=== PATIENT | female | born 1995 | race Caucasian/White ===

== ENCOUNTER 2020-05-18 09:00 | Outpatient (RCR) | payer OTHER, SELFPAY ==
--- NOTE | 2020-05-04 11:31 | MHC.PT.EP ---
[facility] [place] [facility] [place] [facility] [place] [facility] [address] Aletha Ramos [address] [phone] F: [phone] F: [phone] F: [phone] F: [phone] Physical Therapy Plan of Care Date of Evaluation: 05/04/20 Date of Surgery: Diagnosis: right knee pain Assessment: Pt has decreased hip ER ROM and some loss of ER strength. In addition, she has poor sitting and standing posture. She has increased lumbar lordosis and she admittedly sits cross legged right over left constantly which may contribute to knee pain. Pt will benefit from a pelvic, hip core stabilization program and activity modification as needed. Frequency and Duration: The patient will be seen 2x/week x 4 weeks Short Term Goals: -Pt to able to demonstrate proper sitting posture with the use of a lumbar roll to decrease aggravating factors. - Pt to be able to demonstrate proper posture for common leisure activities such as crocheting and phone/tablet use. 2 weeks - For the patient to demonstrate proper upright sitting posture with use of the lumbar roll to improve compliance and carryover. Wellness Coach Goals: 4 weeks - the patient will have no limiting pain in her knees during gait with community ambulation to show improved activity tolerance. 4 weeks - pt will have more quad control with TKE demonstrated by no medial collapse during a curb height step. 4 weeks -patient to be able to return to all functional movements and ADL's without limiting knee pain to show return to PLOF. Treatment Plan: Modalities to reduce pain, spasms and effusion. Manual therapy to restore motion and function. Therapeutic exercise to improve strength and flexibility. Neuromuscular re-education for posture and balance. Therapeutic activities to return to functional activities of daily living. Electronically signed by: Kyleigh Sharma PT DPT Please sign and return to therapist. Thank you for your referral.
--- NOTE | 2020-07-21 08:37 | MHC.PT.DC ---
[facility] [place] Office [place] Office [address] Aletha Ramos [address] [phone] F: [phone] F: [phone] F: [phone] F: [phone] Physical Therapy Discharge Report Diagnosis: right knee pain Date of Surgery: Date of Evaluation: 05/04/20 Date of Discharge: 06/04/20 Treatments to Date: 3 Cancellations to Date: 0 No Shows to Date: 0 Discharge Status: Patient Elected to Stop Discharge Summary: No pain reported today or during the exercise performance. The patient was reminded of importance of compliance to HEP. I discussed neutral spine sitting and other posture concerns for work and home. The patient stopped attending PT. This was not a scheduled D/c. She felt like she could manage her symptoms at home. Electronically signed by: Kyleigh Sharma PT DPT Please sign and return to therapist. Thank you for your referral.
== END 2020-07-21 15:18 | disposition other institution (70) ==
LOC: HO.PT 09:00
PROVIDERS: PCP Internal Medicine; Visit Provider Internal Medicine
DX: M25.561 Pain in right knee (principal)
CPT/HCPCS: 97110; 97112; 97161

== ENCOUNTER 2020-06-07 14:56 | Outpatient (REF) | payer OTHER, SELFPAY ==
[2020-06-07 15:13] LABS: COVID-19 Test Negative (Negative)
== END 2020-06-07 14:57 | disposition home or self-care (01) ==
LOC: HO.EMPCOV 14:56
PROVIDERS: Visit Provider Internal Medicine
DX: Z20.822 Contact with and (suspected) exposure to COVID-19 (principal)
CPT/HCPCS: 36415; 87635; C9803

== ENCOUNTER 2020-06-28 09:15 | Outpatient (REF) | payer OTHER, SELFPAY ==
[2020-06-30 04:36] LABS: C. trachomatis RNA TMA NOT DETECTED (NOT DETECTED); N. gonorrhoeae RNA TMA NOT DETECTED (NOT DETECTED)
[2020-07-04 13:31] LABS: HPV mRNA E6/E7 rflx Not Detected (Not Detected)
== END 2020-06-28 09:16 | disposition home or self-care (01) ==
LOC: HO.LAB 09:15
PROVIDERS: PCP Internal Medicine; Visit Provider Advanced Practice Midwife
DX: Z01.419 Encounter for gynecological examination (general) (routine) without abnormal findings (principal); Z11.3 Encounter for screening for infections with a predominantly sexual mode of transmission; Z87.891 Personal history of nicotine dependence
CPT/HCPCS: 36415; 87491; 87591; 87624; 88142

== ENCOUNTER 2021-11-23 10:41 | Outpatient (REF) | payer OTHER, SELFPAY ==
[2021-11-23 12:18] LABS: Hematocrit 41.4 % (37.0-47.0); Hemoglobin 14.2 g/dl (12.0-16.0); Mean Corpuscular HGB Conc 34.3 g/dl (31.0-35.0); Mean Corpuscular Hemoglobin 31.2 pg (27.0-33.0); Mean Platelet Volume 10.8 fL (9.4-12.3); Platelet Count 303 X10*3/uL (160-400); Red Blood Count 4.55 X10*6/uL (4.20-5.50); Red Cell Distribution Width 12.1 % (11.0-16.0); White Blood Count 5.9 X10*3/uL (4.8-10.8)
[2021-11-23 12:41] LABS: Alanine Aminotransferase 10 U/L (0-31); Albumin Level 4.6 g/dL (3.5-5.0); Alkaline Phosphatase 56 U/L (39-117); Anion Gap 15 (12-20); Aspartate Amino Transferase 19 U/L (5-31); Blood Urea Nitrogen 10 mg/dL (9-16); Carbon Dioxide 25 mmol/L (22-29); Chloride 102 mmol/L (96-108); Cholesterol 140 mg/dL; Estimated Glomerular Filt Rate > 60; Glucose Fasting 72 mg/dL (60-99); HDL Cholesterol 80 mg/dL; Iron 124 mcg/dL (30-160); LDL Cholesterol Calculated 54 mg/dl; Percent Iron Saturation 31 % (15-50); Potassium 4.1 mmol/L (3.3-5.1); Sodium 138 mmol/L (135-145); Total Iron Binding Capacity 400 mcg/dL (228-428); Total Protein 7.2 g/dL (6.5-8.0); Triglycerides 31 mg/dL; Unsaturated Iron Binding 276 ug/dL
[2021-11-26 02:36] LABS: Prolactin 9.3 ng/mL
== END 2021-11-23 10:42 | disposition home or self-care (01) ==
LOC: HO.LAB 10:41
PROVIDERS: PCP Internal Medicine; Visit Provider Internal Medicine
DX: Z00.00 Encounter for general adult medical examination without abnormal findings (principal); E83.19 Other disorders of iron metabolism; R79.89 Other specified abnormal findings of blood chemistry
CPT/HCPCS: 36415; 80053; 80061; 83540; 84146; 85027

== ENCOUNTER 2021-11-30 08:03 | Outpatient (REF) | payer OTHER, SELFPAY ==
[2021-12-04 17:02] LABS: TS Negative Control Passed; TS Panel A 0; TS Panel B 0; TS Positive Control Passed; TSpotTB Negative (Negative)
== END 2021-11-30 08:04 | disposition home or self-care (01) ==
LOC: HO.LAB 08:03
PROVIDERS: PCP Internal Medicine; Visit Provider Internal Medicine
DX: Z00.00 Encounter for general adult medical examination without abnormal findings (principal); N91.2 Amenorrhea, unspecified; Z11.1 Encounter for screening for respiratory tuberculosis
CPT/HCPCS: 36415; 84146; 86481

== ENCOUNTER 2025-01-06 08:45 | Outpatient (REF) | payer OTHER, SELFPAY | END 2025-01-06 08:46 | disposition home or self-care (01) | LOC: HO.LNP 08:45 | PROVIDERS: PCP Internal Medicine; Visit Provider Obstetrics & Gynecology | DX: R87.612 Low grade squamous intraepithelial lesion on cytologic smear of cervix (LGSIL) (principal) | CPT/HCPCS: 57454; 81025; 88305; 88341; 88342 ==

== ENCOUNTER 2025-01-06 08:45 | Outpatient (AMB) | payer OTHER, SELFPAY ==
--- NOTE | 2025-01-06 08:46 | MHC.OFFVIS ---
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 Facilities Engineering Manager: Facilities Engineering Manager Present (Claudia) Accompanied by: Self / Same As Patient Allergies No Known Allergies Allergy (Verified 01/06/25 08:51) Is last menstrual period known: Yes Last menstrual period: 01/04/25 Post menopausal: No Patient : No HPI Comments Details: Presenting with abnormal Pap smear showing LSIL HPV positive, HPV 16/18 negative The patient has history of abnormal Pap smear no actual Pap smear results available, according to the referring PCP record showed the followin/19 ascus HPV positive, no colposcopy 07/01 ascus HPV positive, no colposcopy 08/01 Pap NIL 10/03 LSIL HPV positive, HPV 16/18 negative [facility] Medical History ASCUS with positive high risk HPV cervical Cough Amenorrhea Iron overload Elevated prolactin level Anemia Annual physical exam Right knee pain Surgical History No pertinent past surgical history Family History Mother No problems noted. Brother No problems noted. Father No problems noted. Maternal Grandfather Colon cancer Social History Household Members: Friend(s) Alcohol intake: current Patient Tobacco Use Status: Never used Tobacco Patient : No Current occupational status: employed Current occupation: [employer] Nurse Sexual orientation: Straight/Heterosexual Female Reproductive History Menstrual Age of Menarche: 12 Duration of menses: 3-5 days Date of last menstrual period: 01/04/25 control method: none Total pregnancies: 0 Date of last pap smear: 09/27/24 (+HPV) History of abnormal pap smear: Yes (HPV ) Review of Systems Const All systems reviewed & are unremarkable except as noted in HPI and below Physical Exam Vital Signs: Last Vital Signs BP 104/70 01/06/25 08:54 BMI result Body Mass Index 20.5 General: Yes no CVA tenderness External Female Exam: normal external appearance and normal appearance of the urethra Speculum Exam - Vagina: normal appearance of the vagina, normal palpation, no lesions and no masses Speculum Exam - Cervix: normal appearance of the cervix, normal palpation, no lesions, no masses and nontender Bimanual exam- vagina & uterus: normal bimanual exam, normal palpation, uterine size normal, normal palpation, uterine shape normal, No Cervical tenderness present and non-tender Bimanual Exam- Adnexa, other: normal adnexae Back/Spine/Pelvis Back: no CVA tenderness Office Procedures Colposcopy Colposcopy: Pre-Procedure Counseling: Before beginning the procedure, I conducted comprehensive counseling with the patient. We thoroughly discussed the procedure itself, including its details, alternatives, and all associated risks. This included but not limited to the following complications such as bleeding, infection, and injury to the vagina, bladder, and vessels, as well as the potential need for transfusion with all its associated risks. Subsequently, the patient sign the consent. Pap smear result: LSIL. Urine test in office = Negative Procedure: During the procedure, the following steps were performed: A speculum was inserted, and acetic acid was applied. Colposcopy was conducted, allowing visualization of the transformation zone. Acetowhite lesions were identified at the 5+6+7+9+12+1+3 o'clock position. Cervical biopsies were obtained from the 5+6+7+9+12+1+3 o'clock position, followed by an endocervical curettage (ECC). Vaginoscopy of the upper vagina revealed no evidence of aceto-white lesions. Hemostasis was achieved using Monsel solution, and the patient tolerated the procedure well. Post-Procedure Instructions: The patient was advised to promptly contact the office or the after hours answering service or go to the emergency room if experiencing a temperature exceeding 100.4?F, abdominal pain, nausea/vomiting, or bleeding. Additionally, the patient was instructed to abstain from vaginal intercourse and bathtub use. The patient confirmed understanding of these instructions. Discharge Instructions: The patient was instructed to schedule a follow-up appointment in 2 weeks for further evaluation and management. Please note that this note was generated using a voice recognition program, and errors may have occurred during jewelry bearing maker. [id number] of cervix including upper vagina with biopsy and ECC Procedure code (CPT) selection complete Results AMB Test Urine AMB Test Urine Negative Last Edit by Marsha Humphreys CMA on 01/06/25 09:03 Assessment & Plan Assessment & Plan (1) LGSIL on Pap smear of cervix: Comment: HPV positive, HPV 16/18 negative Code(s): R87.612 - Low grade squamous intraepithelial lesion on cytologic smear of cervix (LGSIL) Category: Medical Plan: Discussed with the patient the result of her abnormal pap, its significance, risk of progression, persistence, and regression. the false positive/negative rate of a Pap smear as a screening test in detecting cervical cancer and the indication for a diagnostic test -colposcopy, biopsy, endocervical curettage. The patient verbalized understanding and agreed with the plan, all questions answered. Colposcopy, biopsy /ECC done, see procedure note Orders: Orders AMB HCG Urine Test Today Z32.02 - Encounter for test, result negative AMB Colposcopy Today R87.612 - Low grade squamous intraepithelial lesion on cytologic smear of cervix (LGSIL) Coding Level of Care Code Procedure Only Diagnoses LGSIL on Pap smear of cervix R87.612 CPT Codes Colposcopy - CPT: 97485-[id number] of cervix including upper vagina with biopsy and ECC ([id number])
[2025-01-06 08:54] VITALS: BP 104/70; BMI 20.5
--- OUTSIDE RECORDS SUMMARY | 2025-01-06 09:29 | XMS_ITS | Encounter Summary ---
Author Organization [facility] Address [address] [place] [address] Phone Care Team Providers Care Price Analyst Name Role Phone Pretty Chapman MD Primary Care Provider [phone] Encounter Details Date Type Department Care Team (Late st Contact Info) Description 04/20/2019 Transcribe Orders Virtual Department [address] [place] [address] Pretty Chapman MD [address] [place] [address] [email or web address] Amenorrhea, unspecified (Primary Dx); Pelvic and perineal pain Social History Tobacco Use Types Packs/Day Years Used Date Smoking Tobacco: Never Assessed Comments Unknown Sex and Gender Information Value Date Recorded Sex Assigned at Not on file Legal Sex Female 8:56 AM EST Gender Identity Not on file Sexual Orientation Not on file documented as of this encounter Plan of Treatment Not on file documented as of this encounter Visit Diagnoses Diagnosis Amenorrhea, unspecified- Primary Pelvic and perineal pain documented in this encounter Care Teams Price Analyst Relationship Specialty Start Date End Date Pretty Chapman MD [address] [place] [address] [email or web address] PCP - General Family Medicine 04/22/19 documented as of this encounter Additional Source Comments The information contained in this document represents components of the legal health record. It is not the complete legal health record.[facility]
--- OUTSIDE RECORDS SUMMARY | 2025-01-06 09:29 | XMS_ITS | Clinical Summary ---
Author Organization [facility] Address [address] [place] [address] Phone Care Team Providers Care Ornament Setter Name Role Phone Pretty Chapman MD Primary Care Provider [phone] Social History Tobacco Use Types Packs/Day Years Used Date Smoking Tobacco: Never Assessed Education Answer Date Recorded Are you interested in more education? Not on primitivo e 09/06/2022 Are you concerned about learning? Not on file 09/06/2022 No 09/06/2022 No 09/06/2022 Digital Access Answer Date Recorded No 10/08/2022 No 10/08/2022 Reliable internet access at home? Not on file 10/08/2022 Device with a working camera? Not on file Comments Unknown Sex and Gender Information Value Date Recorded Sex Assigned at Not on file Legal Sex Female 8:56 AM EST Gender Identity Not on file Sexual Orientation Not on file Plan of Treatment Not on file Medical Devices Not on file Insurance [facility] UMR Minda Lanier [place] [facility] [place] [address] [place] [address] [place] [id number] [facility] UMR Care Teams Ornament Setter Relationship Specialty Start Date End Date Pretty Chapman MD [address] [place] [address] [email or web address] PCP - General Family Medicine 04/22/19 Additional Source Comments The information contained in this document represents components of the legal health record. It is not the complete legal health record.[facility]
== END 2025-01-06 09:17 | disposition home or self-care (01) ==
LOC: HO.HWS 08:45
PROVIDERS: PCP Internal Medicine; Visit Provider Obstetrics & Gynecology
DX: R87.612 Low grade squamous intraepithelial lesion on cytologic smear of cervix (LGSIL) (principal); Z32.02 Encounter for pregnancy test, result negative
CPT/HCPCS: 57454

== ENCOUNTER 2025-01-11 15:40 | Outpatient (AMB) | payer OTHER, SELFPAY ==
--- NOTE | 2025-01-11 15:41 | A.OFFVIS_ITS ---
Intake Visit Reasons: Colpo results/ ?pre op Operations Logistics Analyst: Operations Logistics Analyst Present Allergies No Known Allergies Allergy (Verified 01/06/25 08:51) Is last menstrual period known: Yes Last menstrual period: 03/09/20 Post menopausal: No Patient : No Do you need a note to return to daycare/school/sports/work: Yes (for surgery on friday) HPI Comments Details: Presenting post colpo for follow-up. The patient is doing well with no complaints. The pathology showed the following: A. Endocervix, curettage: Endocervical mucosa and epithelium within normal limits; no atypia identified. B. Cervix, 1 o'clock, biopsy: - Low-grade squamous intraepithelial lesion (ZOHREH 1). - Background inflamed cervical transformation zone mucosa. C. Cervix, 3 o'clock, biopsy: - High-grade squamous intraepithelial lesion (ZOHREH 2). - Background inflamed cervical transformation zone mucosa. D. Cervix, 5 o'clock, biopsy: - Low-grade squamous intraepithelial lesion (ZOHREH 1). - Background inflamed cervical transformation zone mucosa. E. Cervix, 6 o'clock, biopsy: - High-grade squamous intraepithelial lesion (ZOHREH 2). - Background inflamed cervical transformation zone mucosa. F. Cervix, 7 o'clock, biopsy: - High-grade squamous intraepithelial lesion (ZOHREH 2-3). - Background inflamed cervical transformation zone mucosa. G. Cervix, 9 o'clock, biopsy: - High-grade squamous intraepithelial lesion (ZOHREH 2-3). - Background inflamed cervical transformation zone mucosa. H. Cervix, 12 o'clock, biopsy: - High-grade squamous intraepithelial lesion (ZOHREH 2-3). - Background inflamed cervical transformation zone mucosa. COMMENT: The patient's reported history of LSIL with positive high risk HPV on Pap is noted (Pap not performed at this institution) [facility] Medical History ASCUS with positive high risk HPV cervical Cough Amenorrhea Iron overload Elevated prolactin level Anemia Annual physical exam Right knee pain Surgical History No pertinent past surgical history Family History Mother No problems noted. Brother No problems noted. Father No problems noted. Maternal Grandfather Colon cancer Social History Household Members: Friend(s) Alcohol intake: current Patient Tobacco Use Status: Never used Tobacco Current occupational status: employed Current occupation: [employer] Nurse Sexual orientation: Straight/Heterosexual Female Reproductive History Menstrual Age of Menarche: 12 Date of last menstrual period: 03/09/20 Total pregnancies: 2 Full term: 2 Review of Systems Card Reports as per HPI and Reports no additional complaints Resp Reports as per HPI and Reports no additional complaints GI Reports as per HPI and Reports no additional complaints Reports as per HPI Physical Exam Const General: cooperative, healthy appearing and comfortable Resp Effort & Inspection: normal respiratory effort Auscultation: clear to auscultation bilaterally Percussion: percussion normal Cardio Palpation: normal PMI Rate: regular rate Rhythm: regular rhythm Heart sounds: no murmurs and no rubs Peripheral pulses: Peripheral pulses 2+ throughout GI Inspection: Yes normal to inspection Palpation (GI): Soft to palpation, nontender, no guarding, not rigid and No hepatosplenomegaly present Percussion: Yes normal to percussion Auscultation: normal bowel sounds Rectal Exam - Female: deferred Assessment & Plan Assessment & Plan (1) 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 Discussed with the patient the sensitivity specificity, positive and negative predictive value in detecting cervical cancer in addition discussed the regression, persistence and progression rates. Addition discussed with the patient the risk of progression to cancer and impact of excision procedure on her future . Per ASCCP guidelines, 2 options of management were discussed with the patient including either observation with HPV based screening and colposcopy biopsy at 6 months and 12 months versus a diagnostic excisional procedures, which is the preferred method of management. 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
--- OUTSIDE RECORDS SUMMARY | 2025-01-11 16:37 | XMS_ITS | Clinical Summary ---
Author Organization [facility] Address [address] [place] [address] Phone Care Team Providers Care Foundation Engineer Name Role Phone Pretty Chapman MD Primary Care Provider [phone] Social History Tobacco Use Types Packs/Day Years [...] file Medical Devices Not on file Insurance [facility] UMR Minda Lanier [place] [facility] [place] [address] [place] [address] [place] [id number] [facility] UMR Care Teams Foundation Engineer Relationship Specialty Start Date End Date Pretty Chapman MD [address] [place] [address] [email or web address] PCP - General Family Medicine 04/22/19 Additional Source Comments The information contained in this document represents components of the legal health record. It is not the complete legal health record.[facility]
--- OUTSIDE RECORDS SUMMARY | 2025-01-11 16:37 | XMS_ITS | Encounter Summary ---
Author Organization [facility] Address [address] [place] [address] Phone Care Team Providers Care Director Home Health Name Role Phone Pretty Chapman MD Primary Care Provider [phone] Encounter Details Date Type Department Care Team (Late st Contact Info) Description 04/20/2019 Transcribe Orders Virtual Department [address] [place] [address] Pretty Chapman MD [address] [place] [address] [facility] [email or web address] Amenorrhea, unspecified (Primary Dx); Pelvic and perineal [...] pain documented in this encounter Care Teams Director Home Health Relationship Specialty Start Date End Date Pretty Chapman MD [address] [place] [address] [email or web address] PCP - General Family Medicine 04/22/19 documented as of this encounter Additional Source Comments The information contained in this document represents components of the legal health record. It is not the complete legal health record.[facility]
== END 2025-01-11 16:28 | disposition home or self-care (01) ==
LOC: HO.HWS 15:40
PROVIDERS: PCP Internal Medicine; Visit Provider Obstetrics & Gynecology
DX: D06.9 Carcinoma in situ of cervix, unspecified (principal)
CPT/HCPCS: 99213

== ENCOUNTER 2025-01-28 11:36 | Day surgery (SDC) | payer OTHER, SELFPAY ==
--- OUTSIDE RECORDS SUMMARY | 2025-01-12 11:37 | XMS_ITS | Clinical Summary ---
Author Organization [facility] Address [address] [place] [address] Phone Care Team Providers Care Journeyman Patternmaker Name Role Phone Pretty Chapman MD Primary Care Provider [phone] Social History Tobacco Use Types Packs/Day Years [...] file Medical Devices Not on file Insurance [facility] UMR Minda Lanier [place] [facility] [place] [address] [place] [id number] [facility] UMR Care Teams Journeyman Patternmaker Relationship Specialty Start Date End Date Pretty Chapman MD [address] [place] [phone] [email or web address] PCP - General Family Medicine 04/22/19 Additional Source Comments The information contained in this document represents components of the legal health record. It is not the complete legal health record.[facility]
--- OUTSIDE RECORDS SUMMARY | 2025-01-12 11:37 | XMS_ITS | Encounter Summary ---
Author Organization [facility] Address [address] [place] [address] Phone Care Team Providers Care Oil Sprayer Name Role Phone Pretty Chapman MD Primary Care Provider [phone] Encounter Details Date Type Department Care Team (Late st Contact Info) Description 04/20/2019 Transcribe Orders Virtual Department [address] [place] [address] Pretty Chapman MD [address] [place] [phone] [employer] [email or web address] Amenorrhea, unspecified (Primary Dx); Pelvic and perineal [...] pain documented in this encounter Care Teams Oil Sprayer Relationship Specialty Start Date End Date Pretty Chapman MD [address] [place] [phone] [email or web address] PCP - General Family Medicine 04/22/19 documented as of this encounter Additional Source Comments The information contained in this document represents components of the legal health record. It is not the complete legal health record.[facility]
[2025-01-26 07:08] VITALS: BMI 20.5
--- NOTE | 2025-01-26 11:36 | HO.ANESPROP2 ---
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 Brother No problems noted. Father No problems noted. Maternal Grandfather Colon cancer Surgical History Surgical History History of wisdom tooth extraction Social History Social History Household Members: Friend(s) Household Members Other:: Patient refuses to answer living situation questions, states she is safe Alcohol intake: current Patient Tobacco Use Status: Former Tobacco user Smoked in Last 30 Days: Yes e-Cigarette/Vaping Use: Currently Using Patient Interested in Nicotine Replacement: No Have you been hit, kicked, punched, or otherwise hurt by someone within the past year? If so, by whom?: No Are you DNR?: No Advance Directives: No Advance Directives Information Provided: Yes FDLMP: 01/03/25 Poor oral hygiene: No Current occupational status: employed Current occupation: [employer] Nurse Sexual orientation: Straight/Heterosexual Meds Allergies Allergy/AdvReac Type Severity Reaction Status Date / Time No Known Allergies Allergy Verified 01/28/25 11:55 Home Medications ?Medication ?Instructions ?Recorded ?Confirmed ?Last Taken ?Type dextroamphetamine-amphetamine ER 1 cap PO QAM 04/17/20 01/28/25 Unknown History 10 mg 24hr capsule,extend release bupropion HCl 300 mg 24 hr tablet, 300 mg PO DAILY 01/06/25 01/28/25 Unknown History extended release Exam Height,Weight and Vital Signs: Height 5 ft 3 in Weight 52.617 kg Documented by User: Bisi Romero MD 01/28/25 13:06 [facility] Past Medical History Medical History Hx of lipoma ASCUS with positive high risk HPV cervical Cough Amenorrhea Iron overload Elevated prolactin level Anemia Annual physical exam Right knee pain Family History Family History Mother No problems noted. Brother No problems noted. Father No problems noted. Maternal Grandfather Colon cancer Surgical History Surgical History History of wisdom tooth extraction History of Problems with Anesthesia: No Social History Social History Household Members: Friend(s) Household Members Other:: Patient refuses to answer living situation questions, states she is safe Alcohol intake: current Patient Tobacco Use Status: Former Tobacco user Smoked in Last 30 Days: Yes e-Cigarette/Vaping Use: Currently Using Patient Interested in Nicotine Replacement: No Have you been hit, kicked, punched, or otherwise hurt by someone within the past year? If so, by whom?: No Are you DNR?: No Advance Directives: No Advance Directives Information Provided: Yes FDLMP: 01/03/25 Poor oral hygiene: No Current occupational status: employed Current occupation: [employer] Nurse Sexual orientation: Straight/Heterosexual Meds Allergies Allergy/AdvReac Type Severity Reaction Status Date / Time No Known Allergies Allergy Verified 01/28/25 11:55 Home Medications ?Medication ?Instructions ?Recorded ?Confirmed ?Last Taken ?Type dextroamphetamine-amphetamine ER 1 cap PO QAM 04/17/20 01/28/25 Unknown History 10 mg 24hr capsule,extend release bupropion HCl 300 mg 24 hr tablet, 300 mg PO DAILY 01/06/25 01/28/25 Unknown History extended release Exam Airway Mallampati Class: I TM Dist: >3cm Neck ROM: Full Loose/Missing/Broken Teeth: No Heart: RRR Lungs: CTA Assessment and Plan Assessment Anesthesia Assessment: Anesthesia Plan Discussed and Chart Reviewed Final Anesthetic Review History of Problems with Anesthesia: No NPO: Yes ASA Class: II Final Preanesthetic Review: Meds/Allgs Chart Reviewed, Consent Obtained/Reviewed and Anes Risks/Benef Reviewed Patient Risk: Low Procedure Risk: Low Anesthetic Plan Anesthetic Plan: GA Disposition: Standard PACU
[2025-01-28 11:40] VITALS: BMI 21.6
[2025-01-28] MEDS: Lactated Ringers 1,000 ML 100 ML IVCONT (11:52)
[2025-01-28 11:53] LABS: UPreg QC Valid YES
[2025-01-28 12:04] VITALS: BP 119/79; PULSE 106; RESP 18; TEMP 37; O2SAT 98
--- NOTE | 2025-01-28 12:19 | MHC.SHP ---
Pre-Procedural Eval Section A - 24 Hr Update-Section A only Date of Service: 01/28/25 The patient is an INPATIENT: No Changes since office visit: No Cold of Flu in the past 2 weeks, No New Medical Problems, No Changes in Medication and No Patient answered all questions The patient has been examined within 24 hours of the surgical procedure. The History & Physical has been completed within 30 days and I have reviewed it.: Yes Section B - Complete if H&P > 30 days Chief Complaint: Carcinoma in situ of cervix, unspecified Allergies: Allergies Allergy/AdvReac Type Severity Reaction Status Date / Time No Known Allergies Allergy Verified 01/28/25 11:55 Plan Diagnosis/Plan: Unchanged I have reviewed the history and physical and performed a pertinent physical examination on my patient. No changes have occurred unless specified. Time Spent With Patient Time: Total time managing care of this patient today ____ minutes.
--- NOTE | 2025-01-28 13:08 | PC.NURSE ---
dr. salcido aware of patient anxiety regarding post op pain control and aware of patient written care plan. aware of pulse that is 106-130. okay to proceed. no interventions per doctor. dr. gallegos at bedside and has answered all patient questions/concerns.
--- NOTE | 2025-01-28 13:39 | PM.OP ---
Brief Operative Note Date of Service: 01/28/25 Pre-op diagnosis: ZOHREH 2-3 Post-op diagnosis: same Procedure: LEEP CONE with post CONE ECC Surgeon: Ted Glynn MD Anesthesia: GLMA and other (Paracervical block) Was an [employer]airer used for this Procedure?: No Estimated blood loss (mL): 0 Pathology: other (Cervical cone, endocervical, Post cone ECC) Condition: stable Disposition: other (Home)
--- NOTE | 2025-01-28 13:40 | P.OP_ITS ---
Operative Note Operative Note Date of Service: 01/28/25 Narrative: Pre op diagnosis: ZOHREH 2-3 Operation: Colposcopy, Loop electrical excision procedure cone, endocervical excision, post cone ECC Postop diagnosis: the same Quantitative blood loss: 50 cc Surgeon: Ted Glynn MD, FACOG Water Resources Project Manager: None Pathology: Cervical cone, top-hat endo cervical excision, endo cervical curettage Complications: none Anesthesia: GLMA and Para cervical block Procedure: The patient was put in a dorsal lithotomy position, scrubbed and draped in the usual sterile fashion. A speculum was inserted inside the patient's vagina. The cervix is assessed using the colposcope with acetic acid , the lesions were seen, and at least 1 cm of the squamocolumnar junction was observed. 20 x 5 mm size loop was selected based upon the diameter of the lesion. Lugol solution was used to outline the lesions and area of the transformation zone order to be removed 10 cc of xylocaine with epinephrine were injected submucosally into the surface of the cervix (ectocervix) at the 3, 6, 9, and 12 o'clock positions. The electrosurgical generator is set at 40 garrett on blend 1. The loop is carefully passed simultaneously around and under the transformation zone, in order to ensure excising it making sure the lesion is at least 5 mm far from the specimen margins . The loop was allowed to glide through the cervix from one side to the other, allowing the cutting current to divide the tissue. Additional tissue was excised from this area with a smaller-diameter loop , endo cervical top-hat excision was performed An endo cervical curettage is performed following completion of excision, and hemostasis is obtained with a Ball electrode or regular tip cautery. At the end, Monsel's solution was applied to the cone bed. The patient tolerated the procedure well and, all instruments were taken out of the patient vaginal cavity, and the patient was transferred to the PACU in stable condition.
[2025-01-28 13:45] VITALS: BP 95/55; PULSE 91; RESP 18; TEMP 36.2; O2SAT 100
[2025-01-28 13:50] VITALS: BP 99/56; PULSE 85; RESP 15; O2SAT 100
[2025-01-28 13:55] VITALS: BP 95/56; PULSE 85; RESP 16; O2SAT 100
[2025-01-28 14:00] VITALS: BP 100/59; PULSE 89; RESP 16; O2SAT 100
[2025-01-28 14:15] VITALS: BP 113/76; PULSE 88; RESP 16; TEMP 36.1; O2SAT 100
== END 2025-01-28 14:48 | disposition home or self-care (01) ==
PROVIDERS: Nurse Practitioner; Visit Provider Obstetrics & Gynecology
PROC: 0UBC7ZZ Excision of Cervix, Via Natural or Artificial Opening (ICD-10-PCS; CPT 57522; principal; 2025-01-28 14:20)
DX: N87.1 Moderate cervical dysplasia (principal); N91.2 Amenorrhea, unspecified; D64.9 Anemia, unspecified; E22.1 Hyperprolactinemia; R05.9 Cough, unspecified; E83.119 Hemochromatosis, unspecified
CPT/HCPCS: 57461; 81025; 88305; 88307; J2004

== ENCOUNTER → 2025-01-28 11:36 | Outpatient (BNV) | payer OTHER, SELFPAY | PROVIDERS: Visit Provider Obstetrics & Gynecology | DX: D06.9 Carcinoma in situ of cervix, unspecified (principal) | CPT/HCPCS: 57461 ==

== ENCOUNTER 2025-02-03 08:23 | Outpatient (AMB) | payer OTHER, SELFPAY ==
--- NOTE | 2025-02-03 08:23 | MHC.OFFVIS ---
Intake Visit Reasons: post op Allergies No Known Allergies Allergy (Verified 01/28/25 11:55) HPI Comments Details: The patient is presenting for follow-up post LEEP cone with post cone ECC. The patient has no complaints. The pathology showed the following: A. Cervix, cone excision: - High-grade squamous intraepithelial lesion (ZOHREH 2); negative margins. - Background inflamed cervical transformation zone mucosa. B. Endocervix, excision: Endocervical mucosa within normal limits; no atypia identified. C. Endocervix, post cone curettage: Endocervical epithelium and lower uterine segment/endocervical mucosa within normal limits; no atypia identified [facility] Medical History (Updated 02/03/25 @ 08:43 by Ted Glynn MD) Hx of lipoma ASCUS with positive high risk HPV cervical Cough Iron overload Anemia Annual physical exam Right knee pain Surgical History History of wisdom tooth extraction Family History Mother No problems noted. Brother No problems noted. Father No problems noted. Maternal Grandfather Colon cancer Social History Household Members: Friend(s) Household Members Other:: Patient refuses to answer living situation questions, states she is safe Alcohol intake: current Patient Tobacco Use Status: Former Tobacco user e-Cigarette/Vaping Use: Currently Using Current occupational status: employed Current occupation: [employer] Nurse Sexual orientation: Straight/Heterosexual Female Reproductive History Menstrual Age of Menarche: 12 Review of Systems Const All systems reviewed & are unremarkable except as noted in HPI and below Reports as per HPI and Reports no additional complaints GI Reports no additional complaints Reports no additional complaints Telehealth Telehealth Telehealth Platform: [facility] Location of provider rendering services: practice address Location of patient: address on file Patient Identification confirmed using: Name, : Yes Telehealth method: video Patient verbally consented to treatment: Yes Patient verbally consented to billing insurance company: Yes Patient informed of any privacy concerns related to visit: Yes Minutes spent on Phone/Video with Pt.: 4 Assessment & Plan Assessment & Plan (1) ZOHREH II (cervical intraepithelial neoplasia II): Comment: Status post LEEP cone with post cone ECC, negative margins Code(s): N87.1 - Moderate cervical dysplasia Category: Medical Plan: Discussed with the patient the procedure and the pathology results with negative margins, negative endocervix and post cone ECC. Discussed with the patient the ASCCP guidelines, HPV based testing at six-months, if negative, repeat co testing annually for 3 years if negative, co testing every 3 years for 25 years. Instructions given to patient to schedule a six-months co testing appointment. All questions answered, the patient verbalized understanding I spent a total of 20 minutes reviewing the chart, talking to the patient via video and documenting in the medical record. Coding Level of Care Code Tele Est Pt Level 3 (48552) Diagnoses ZOHREH II (cervical intraepithelial neoplasia II) N87.1
--- OUTSIDE RECORDS SUMMARY | 2025-02-03 08:50 | XMS_ITS | Encounter Summary ---
Author Organization [facility] Address [address] [place] [phone] Phone Care Team Providers Care Clinical Product Specialist Name Role Phone Pretty Chapman MD Primary Care Provider [phone] Encounter Details Date Type Department Care Team (Late st Contact Info) Description 04/20/2019 Transcribe Orders Virtual Department [address] [place] [address] Pretty Chapman MD [address] [place] [phone] [email or web address] Amenorrhea, unspecified (Primary Dx); Pelvic and perineal [...] pain documented in this encounter Care Teams Clinical Product Specialist Relationship Specialty Start Date End Date Pretty Chapman MD [address] [place] [phone] [email or web address] PCP - General Family Medicine 04/22/19 documented as of this encounter Additional Source Comments The information contained in this document represents components of the legal health record. It is not the complete legal health record.[facility]
--- OUTSIDE RECORDS SUMMARY | 2025-02-03 08:50 | XMS_ITS | Clinical Summary ---
Author Organization [facility] Address [address] [place] [phone] Phone Care Team Providers Care Therapy Tech Name Role Phone Pretty Chapman MD Primary Care Provider [phone] Social History Tobacco Use Types Packs/Day Years [...] file Medical Devices Not on file Insurance [facility] Minda Lanier [place] [facility] [address] [address] [place] [id number] [facility] Care Teams Therapy Tech Relationship Specialty Start Date End Date Pretty Chapman MD [address] [place] [phone] [email or web address] PCP - General Family Medicine 04/22/19 Additional Source Comments The information contained in this document represents components of the legal health record. It is not the complete legal health record.[facility]
== END 2025-02-03 09:02 | disposition home or self-care (01) ==
LOC: HO.HWS 08:23
PROVIDERS: Visit Provider Obstetrics & Gynecology
DX: N87.1 Moderate cervical dysplasia (principal)
CPT/HCPCS: 99213